=== PATIENT | female | born 1935 | race Caucasian/White ===

== ENCOUNTER → 2017-08-25 | Day surgery (SDC) | payer OTHER, MEDICARE ==
[~2017-08-25] VITALS: Ht 167.6 cm; Wt 81.6 kg
[~2017-08-25] MED LIST: OMEPRAZOLE40 MG PO; SYNTHROID0.025 MG PO
--- NOTE | 2017-08-25 10:44 | Operative Report ---
Operative/Inv Procedure Report Surgery Date: 08/25/17 Name of Procedure: Laparoscopic right inguinal hernia repair Pre-Operative Diagnosis: Right inguinal hernia Post-Operative Diagnosis: Same Estimated Blood Loss: scant Surgeon/Optician Apprentice Dispensing: Ronak STANFORD,Larry Nunez/Muriel Melchor APRN Anesthesia: general endotracheal tube Implants: Parietex mesh Operative/Procedure Note Note: After consent patient is brought to the operating room laid supine. General anesthesia was obtained and the abdomen was prepped and draped. Skin was anesthetized with local anesthesia and a transverse infraumbilical incision made sharply. We identified the rectus fascia and incised transversely. Stay sutures were placed. Rectus muscle was retracted laterally and a dissecting balloon placed posterior to it. It was inflated under direct vision the camera and replaced with a blunt Shields port. Gas was instilled. 2, 5 mm ports were placed in the infraumbilical midline after local anesthesia was instilled and under direct vision and camera. Began our dissection at the pubis and delineated the symphysis on the right side. Adrien's ligament was identified and cleared. There was a moderate sized femoral hernia which was incarcerated. With manipulation from the inguinal region was able to reduce it. Remainder of the contents were then cleared on the inside with cautery and blunt dissection. Then dissected laterally and developed the iliopubic tract. The round ligament was circumferentially dissected and divided. Once the dissection was completed a right -sided piece of Parietex mesh was placed in the cavity. It was placed lynette cover the femoral, direct and direct spaces as well. It was tacked medially to keep it in proper position. Gas was allowed to escape on maintaining proper orientation of the mesh. The fascia was closed with 0 Vicryl suture. Skin incisions closed with 4-0 Vicryl. Steri-Strips and sterile dressing applied. Sponge and needle counts are correct. Findings: Incarcerated femoral hernia CC: Aidan STANFORD,Duc Martinez
== END ==
LOC: STS 03:44
DX: K40.90 Unilateral inguinal hernia, without obstruction or gangrene, not specified as recurrent (principal); K41.30 Unilateral femoral hernia, with obstruction, without gangrene, not specified as recurrent; D86.0 Sarcoidosis of lung; L93.0 Discoid lupus erythematosus; K21.9 Gastro-esophageal reflux disease without esophagitis
CPT/HCPCS: C1781; J0131; J0690; J2405